=== PATIENT | female | born 1995 | race Caucasian/White ===

== ENCOUNTER 2018-06-07 11:54 | Emergency (ER) | payer BC ==
[2018-06-07] MEDS: PROMETHAZINE/CODEINE 5ML CUP PO (13:22)
== END 2018-06-07 15:03 | disposition home or self-care (01) ==
LOC: FTE 11:54
DX: J06.9 Acute upper respiratory infection, unspecified (principal)
CPT/HCPCS: 71045; 81025; 99283-25